=== PATIENT | male | born 1975 | race Caucasian/White ===

== ENCOUNTER 2021-02-10 08:45 | Emergency (ER) | payer SELFPAY ==
[2021-02-10 08:51] VITALS: BP 132/92; PULSE 95; TEMP 98.3; BMI 36.9
[2021-02-10] MEDS ORDERED: LACTATED RINGERS SOLUTION 1000 ML INFUS.BAG IV ONE (09:12)
[2021-02-10] MEDS ORDERED: metFORMIN HCL 500 MG TABLET (FP) PO ONE (09:15)
[2021-02-10 09:48] LABS: BASO % 2.5 % (0-2.0); EOS % 2.8 % (0-4.5); HEMATOCRIT 43.7 % (35.4-49); HEMOGLOBIN 14.9 GM/dl (11.7-16.9); LYMPH % 37.7 % (8-40); MCH 29.2 pg (25.7-33.7); MCHC 34.2 g/dl (32.0-35.9); MEAN CELL VOLUME 85.4 fl (80-96); MEAN PLT VOLUME 9.8 fl (7.5-11.1); MONO % 8.4 % (3.8-10.2); NEUT % 48.6 % (42.8-82.8); PLATELET COUNT 202 10^3/uL (134-434); RBC 5.12 M/mm3 (4.00-5.60); RDW 12.5 % (11.9-15.9); WHITE BLOOD COUNT 5.5 K/mm3 (4.0-10.8)
[2021-02-10 09:54] LABS: ALK PHOS 92 U/L (45-117); ANION GAP 14 MMOL/L (8-16); BILIRUBIN,TOTAL 0.8 mg/dl (0.2-1); CALCIUM 9.2 mg/dl (8.5-10); CHLORIDE 95 mmol/L (98-107); CO2 22 mmol/L (21-32); CREATININE 0.7 mg/dl (0.55-1.3); GLUCOSE,RANDOM 332 mg/dl (74-106); SGOT/AST 48 U/L (15-37); SGPT/ALT 64 U/L (13-61); SODIUM 131 mmol/L (136-145); TOT PROT 7.2 g/dl (6.4-8.2)
[2021-02-10 11:31] LABS: LIPASE 331 U/L (73-393)
== END 2021-02-10 11:42 | disposition home or self-care (01) ==
LOC: FER 08:45
DX: E11.65 Type 2 diabetes mellitus with hyperglycemia (principal)
CPT/HCPCS: 36415; 80053; 82010; 82550; 82962; 83690; 84484; 85025; 99284-25